=== PATIENT | female | born 1965 | race Caucasian/White ===

== ENCOUNTER 2016-11-09 08:38 | Emergency (ER) | payer BC ==
[~2016-11-09] VITALS: Ht 160 cm; Wt 81.0 kg
[2016-11-09 08:43] VITALS: BP 129/89; PULSE 88; RESP 18; TEMP 98.3; O2SAT 95
[2016-11-09] MEDS ORDERED: LIPI20TA PO (08:58)
[2016-11-09] MEDS ORDERED: NEXI40CA PO (08:58)
[2016-11-09] MEDS ORDERED: SODIUM CHLOR 0.9% 1000 ML INJ 1,000 ML IV SCH (09:04)
[2016-11-09 09:07] VITALS: O2SAT 98
[2016-11-09] MEDS ORDERED: SODIUM CHLORIDE 0.9% FLUSH 10 ML FLUSH IV FLUSH PRN (09:15)
[2016-11-09 09:16] LABS: AUTOMATED NEUTROPHIL # 7.4 TH/MM3 (1.8-7.7); BASOPHIL # 0.1 TH/MM3 (0-0.2); BASOPHIL % 0.5 % (0.0-2.0); EOSINOPHIL # 0.1 TH/MM3 (0-0.4); EOSINOPHIL % 0.9 % (0.0-4.0); HEMATOCRIT 38.9 % (35.0-46.0); HEMO FLAGS DIFF FINAL; LYMPH % 17.6 % (9.0-44.0); LYMPHOCYTE # 1.8 TH/MM3 (1.0-4.8); MEAN CELL VOLUME 89.2 FL (80.0-100.0); MEAN CORPUSCULAR HEMOGLOBIN 30.2 PG (27.0-34.0); MEAN CORPUSCULAR HGB CONC 33.9 % (32.0-36.0); MONO % 6.4 % (0.0-8.0); NEUT % 74.6 % (16.0-70.0); PLATELET COUNT 273 TH/MM3 (150-450); RED BLOOD COUNT 4.36 MIL/MM3 (4.00-5.30); RED CELL DISTRIBUTION WIDTH 12.2 % (11.6-17.2)
--- NOTE | 2016-11-09 09:19 | PD ---
HPI Chief Complaint: GI Complaint Time Seen by Provider: 09:04 Travel History International Travel<30 days: No Contact w/Intl Traveler<30days: No Traveled to known affect area: No History of Present Illness HPI 51-year-old female with no significant past medical issues, presents to the ER with one-day history of diarrhea and red blood in the stools. She states that she gets crampy abdominal pains that she rates it a 3 out of 10 at its worse and it comes and goes with the diarrhea. She's had several episodes since yesterday afternoon. She states that her stools are now firming up. She denies any black stools, fevers, vomiting, or any other symptoms. She states that she gets fresh eggs from a friend and has been eating at recently. She states that her roommate has also been the same eggs but has not gotten sick. She states that she has thought of salmonella from the eggs and states that she has not been washing the eggs thoroughly before using them. Modifying Factors: None Associated Signs & Symptoms: Diarrhea, red blood in the stools Risk Factors: Using fresh eggs recently PFSH Past Medical History High Cholesterol: Yes GERD: Yes ?: Not Menopausal: Yes Past Surgical History Surgical History: No Previous Surgery Social History Alcohol Use: Yes (socially) Tobacco Use: No Substance Use: No Allergies-Medications (Allergen,Severity, Reaction): Coded Allergies: No Known Allergies (Unverified , 11/09/16) Reported Meds & Prescriptions Reported Meds & Active Scripts Active Reported Nexium (Esomeprazole DR) 40 Mg Capdr 40 Mg PO WEEKLY Lipitor (Atorvastatin Calcium) 20 Mg Tab 20 Mg PO HS Review of Systems Except as stated in HPI: all other systems reviewed are Neg Physical Exam Narrative GENERAL: Well-developed middle age white female patient who is currently not acute distress. Awake, alert, oriented 3. SKIN: Focused skin assessment warm/dry. HEAD: Atraumatic. Normocephalic. EYES: Pupils equal and round. No scleral icterus. No injection or drainage. ENT: No nasal bleeding or discharge. Mucous membranes pink and moist. NECK: Trachea midline. No JVD. CARDIOVASCULAR: Regular rate and rhythm. No murmur appreciated. RESPIRATORY: No accessory muscle use. Clear to auscultation. Breath sounds equal bilaterally. GASTROINTESTINAL: Abdomen soft, non-tender, nondistended. Hepatic and splenic margins not palpable. Benign. RECTAL EXAM: No masses or tenderness, stool is brown. Trace Hemoccult-positive. MUSCULOSKELETAL: No obvious deformities. No clubbing. No cyanosis. No edema. NEUROLOGICAL: Awake and alert. No obvious cranial nerve deficits. Motor grossly within normal limits. Normal speech. PSYCHIATRIC: Appropriate mood and affect; insight and judgment normal. Data Data Last Documented VS Vital Signs Date Time Temp Pulse Resp B/P Pulse Ox O2 Delivery O2 Flow Rate FiO2 11/09/16 09:07 98 Room Air 11/09/16 08:43 98.3 88 18 129/89 Orders Complete Blood Count With Diff (11/09/16 09:04) Comprehensive Metabolic Panel (11/09/16 09:04) Lipase (11/09/16 09:04) Iv Access Insert/Monitor (11/09/16 09:04) Ecg Monitoring (11/09/16 09:04) Oximetry (11/09/16 09:04) Sodium Chlor 0.9% 1000 Ml Inj (Ns 1000 M (11/09/16 09:04) Sodium Chloride 0.9% Flush (Ns Flush) (11/09/16 09:15) Labs Laboratory Tests Test 11/09/16 09:12 White Blood Count 10.0 TH/MM3 Red Blood Count 4.36 MIL/MM3 Hemoglobin 13.2 GM/DL Hematocrit 38.9 % Mean Corpuscular Volume 89.2 FL Mean Corpuscular Hemoglobin 30.2 PG Mean Corpuscular Hemoglobin 33.9 % Concent Red Cell Distribution Width 12.2 % Platelet Count 273 TH/MM3 Mean Platelet Volume 8.2 FL Neutrophils (%) (Auto) 74.6 % Lymphocytes (%) (Auto) 17.6 % Monocytes (%) (Auto) 6.4 % Eosinophils (%) (Auto) 0.9 % Basophils (%) (Auto) 0.5 % Neutrophils # (Auto) 7.4 TH/MM3 Lymphocytes # (Auto) 1.8 TH/MM3 Monocytes # (Auto) 0.6 TH/MM3 Eosinophils # (Auto) 0.1 TH/MM3 Basophils # (Auto) 0.1 TH/MM3 CBC Comment DIFF FINAL Differential Comment Sodium Level 141 MEQ/L Potassium Level 3.8 MEQ/L Chloride Level 105 MEQ/L Carbon Dioxide Level 26.6 MEQ/L Anion Gap 9 MEQ/L Blood Urea Nitrogen 13 MG/DL Creatinine 1.00 MG/DL Estimat Glomerular Filtration 58 ML/MIN Rate Random Glucose 111 MG/DL Calcium Level 9.3 MG/DL Total Bilirubin 0.7 MG/DL Aspartate Amino Transf 29 U/L (AST/SGOT) Alanine Aminotransferase 37 U/L (ALT/SGPT) Alkaline Phosphatase 63 U/L Total Protein 7.6 GM/DL Albumin 3.5 GM/DL Lipase 165 U/L MDM Medical Decision Making Medical Screen Exam Complete: Yes Emergency Medical Condition: Yes Medical Record Reviewed: Yes Interpretation(s) Laboratory Tests Test 11/09/16 09:12 Neutrophils (%) (Auto) 74.6 % (16.0-70.0) Estimat Glomerular Filtration 58 ML/MIN (>89) Rate Random Glucose 111 MG/DL (74-106) Differential Diagnosis Diarrhea, or blood in the stoolsgastroenteritis versus GI bleeding versus coagulopathy versus diverticulitis versus dehydration versus metabolic issues Narrative Course Abdomen is benign and I do not suspect an acute intra-abdominal process. Her lab work did not show any signs of significant electrolyte abnormalities. Her H &H is stable. Vital signs are stable. At this point, I suspect underlying colitis, possibly secondary to salmonella, causing her diarrhea and blood in the stools. I do not suspect a GI bleed in this case. Patient has had no problems with blood in the stools in the past without the diarrhea. My plan would be to give her symptomatic treatment. Follow-up with primary care physician. Return for any worsening in symptoms as needed. The plan has been discussed with her and she states understanding. Diagnosis Primary Impression: Bloody stools Additional Impression: Gastroenteritis Med/Other Pt SpecificInfo: Prescription(s) given Scripts Ciprofloxacin (Cipro)500 Mg Uhh509 Mg PO BID 7 Days Ref 0 Prov:Kiarra Velazquez MD 11/09/16 Disposition: 01 DISCHARGE HOME Condition: Stable Kiarra Velazquez MD Nov 09, 2016 09:19
[2016-11-09 09:53] LABS: BICARBONATE 26.6 MEQ/L (21.0-32.0); BLOOD UREA NITROGEN 13 MG/DL (7-18)
[2016-11-09 09:54] LABS: ANION GAP 9 MEQ/L (5-15); CHLORIDE 105 MEQ/L (98-107); POTASSIUM 3.8 MEQ/L (3.5-5.1); SODIUM (NA) 141 MEQ/L (136-145)
[2016-11-09 09:55] LABS: ALKALINE PHOSPHATASE 63 U/L (45-117)
[2016-11-09 09:56] LABS: ALT (GPT) 37 U/L (10-53); AST (GOT) 29 U/L (15-37); GLOMERULAR FILTRATION RATE 58 ML/MIN (>89)
[2016-11-09 09:57] LABS: TOTAL BILIRUBIN ADULT 0.7 MG/DL (0.2-1.0)
[2016-11-09] MEDS ORDERED: CIPR-9 PO (10:07)
[2016-11-09 10:43] VITALS: BP 130/78
[2016-11-09] MEDS ORDERED: CEPH-460 PO (10:43)
== END 2016-11-09 10:48 | disposition home or self-care (01) ==
LOC: PHED 08:38
DX: K92.1 Melena (principal); K52.9 Noninfective gastroenteritis and colitis, unspecified; R19.7 Diarrhea, unspecified; E78.00 Pure hypercholesterolemia, unspecified; K21.9 Gastro-esophageal reflux disease without esophagitis
CPT/HCPCS: 80053; 83690; 85025; 96360; 99284; J7030